=== PATIENT | female | born 1995 | race Caucasian/White ===

== ENCOUNTER 2019-01-03 07:53 | Emergency (ER) | payer BC ==
[~2019-01-03] VITALS: Ht 162.6 cm; Wt 103.4 kg
[2019-01-03 08:00] VITALS: BP 123/91
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
[2019-01-03] MEDS ORDERED: KETOROLAC 30 MG/ML VIAL IM ONE (08:45)
[2019-01-03] MEDS ORDERED: DEXAMETHASONE 4 MG/ML VIAL IM ONE (08:45)
--- NOTE | 2019-01-03 08:47 | NUR ---
Patient being evaluated by physician at bedside.
[2019-01-03 09:35] VITALS: BP 126/90
--- NOTE | 2019-01-03 09:35 | NUR ---
Patient discharged with v/s stable. Written and verbal after care instructions given and explained. Patient alert, oriented and verbalized understanding of instructions. Ambulatory with steady gait. All questions addressed prior to discharge. ID band removed. Patient advised to follow up with PMD. Rx of CLINDAMYCIN HYDROCHLORIDE given. Patient educated on indication of medication including possible reaction and side effects. Opportunity to ask questions provided and answered.
== END 2019-01-03 09:35 | disposition home or self-care (01) ==
LOC: MED 07:53
DX: J02.0 Streptococcal pharyngitis (principal)
CPT/HCPCS: 87081; 96372; 99283; J1100; J1885